=== PATIENT | female | born 1985 | race Caucasian/White ===

== ENCOUNTER 2022-05-03 15:04 | Emergency (ER) | payer OTHER, SELFPAY ==
[2022-05-03 15:16] VITALS: BP 120/80; PULSE 86; RESP 16; TEMP 36.5; O2SAT 100
--- NOTE | 2022-05-03 15:28 | ED.FEMALEGU ---
HPI - Female Genitourinary General Chief complaint: Urogenital-Female Stated complaint: Female Urogenital Time Seen by Provider: 05/03/22 15:28 Source: patient Mode of arrival: ambulatory Limitations: no limitations History of Present Illness HPI Narrative: 36-year-old female presents with complaint of vaginal discharge without odor, itching, vaginal burning, irritation for 3-4 days. Reports history of bacterial vaginitis is caused by changes in soaps. Reports that she recently used a different soap. Patient states she does not think that she has an STI but would like checked due to having a new partner. All systems reviewed and negative except as noted above. Related Data Home Medications Medication Instructions Recorded Confirmed clonazepam 0.5 mg tablet 0.5 mg PO BID 05/03/22 05/03/22 clonidine HCl 0.1 mg tablet 0.1 mg PO HS 05/03/22 05/03/22 estradiol 0.1 mg/24 hr weekly 1 patch transdermal WEEKLY 05/03/22 05/03/22 transdermal patch hydrocodone 7.5 mg-acetaminophen 1 tablet PO PRN PRN Pain 05/03/22 05/03/22 325 mg tablet levothyroxine 137 mcg tablet 137 mcg PO DAILY 05/03/22 05/03/22 (Synthroid) sertraline 100 mg tablet 100 mg PO BID 05/03/22 05/03/22 tramadol 50 mg tablet 50 mg PO TID PRN Pain 05/03/22 05/03/22 Allergies Allergy/AdvReac Type Severity Reaction Status Date / Time olanzapine AdvReac Intermediate Dizziness Verified 05/03/22 15:30 Review of Systems Review of Systems: CONSTITUTIONAL: Denies fever, chills, or sweats. EYES: Denies visual changes, redness, or discharge. ENT: Denies rhinorrhea, congestion, sore throat, or otalgia. CARDIOVASCULAR: Denies chest pain, palpitations, or edema. RESPIRATORY: Denies cough or dyspnea. GASTROINTESTINAL: Denies abdominal pain, nausea, vomiting, or diarrhea. GENITOURINARY: Denies dysuria or hematuria. Reports vaginal discharge, odor, itching. SKIN: Denies rash or itching. MUSCULOSKELETAL: Denies back pain, joint pain, or myalgia. NEUROLOGIC: Denies headache, numbness, or weakness. PSYCHIATRIC: Denies anxiety or depression. All other systems reviewed are negative, except as documented in HPI. PMFSH Comments At time of signature, agree with nursing past medical, surgical, social and family history. There is no relevant family history pertinent to the presenting complaint. Exam Narrative: GENERAL: This is a well-nourished, well-developed patient, in no apparent distress. HEAD: normocephalic, atraumatic. EYES: PERRL. Sclera clear/white. Vision is grossly intact. EARS: External ears normal NOSE: External nose normal NECK: Neck supple, non-tender without lymphadenopathy, masses or thyromegaly. CARDIOVASCULAR: Regular rate and rhythm without murmurs, gallops, or rubs. RESPIRATORY: Clear to auscultation. Breath sounds equal bilaterally. No wheezes, rales, or rhonchi. SKIN: warm, Dry, intact with no suspicious lesions or rash, good texture and turgor. NEURO: awake, alert, and oriented to person, place and time. There were no obvious focal neurologic abnormalities. EXTREMITIES: No joint tenderness, effusion, or edema noted. : External Female Exam: normal external appearance Speculum Exam - Vagina: abnormal vaginal discharge ( White, thick, cottage cheeselike) Course Course Level of Care: Express Care Visit Vital Signs Vital signs: Vital Signs Temperature 36.5 C 05/03/22 15:16 Pulse Rate 86 05/03/22 15:16 Respiratory Rate 16 05/03/22 15:16 Blood Pressure 120/80 05/03/22 15:16 Pulse Oximetry 100 05/03/22 15:16 Oxygen Delivery Room Air 05/03/22 15:16 Temperature 36.5 C 05/03/22 15:16 Pulse Rate 86 05/03/22 15:16 Respiratory Rate 16 05/03/22 15:16 Blood Pressure 120/80 05/03/22 15:16 Pulse Oximetry 100 05/03/22 15:16 Oxygen Delivery Room Air 05/03/22 15:16 reviewed MDM - Female Genitourinary MDM Narrative Medical decision making narrative: Patient is aware of diagnosis, understands and
== END 2022-05-03 15:52 | disposition home or self-care (01) ==
PROVIDERS: Emergency Provider Nurse Practitioner Family
DX: B37.31 Acute candidiasis of vulva and vagina (principal); E03.9 Hypothyroidism, unspecified; N80.9 Endometriosis, unspecified
CPT/HCPCS: 87070; 87491; 87591; 87661; 99204; G0463

== ENCOUNTER 2023-12-08 13:15 | Emergency (ER) | payer SELFPAY ==
[2023-12-08 13:26] VITALS: BP 133/92; PULSE 86; RESP 16; TEMP 36.6; O2SAT 100
[2023-12-08 13:28] VITALS: BP 133/92; PULSE 86; RESP 16; TEMP 36.6; O2SAT 100
--- NOTE | 2023-12-08 13:31 | ED.SKABFB ---
HPI - Skin/Abscess/Foreign Bdy General Chief complaint: Skin/Abscess/Foreign Body Stated complaint: fingernail redness Source: patient Mode of arrival: ambulatory Limitations: no limitations History of Present Illness HPI narrative: 38 y/o female presented for concern of redness around all cuticles for a few days. Denies pain, swelling or drainage. States she did use cleaning products a few days ago. Pt reports history of OCD, hypothyroid and a liver lesion. States she is concerned it could be related to liver problems. Related Data Home Medications Medication Instructions Recorded Confirmed clonazepam 0.5 mg tablet 0.5 mg PO BID 05/03/22 12/08/23 clonidine HCl 0.1 mg tablet 0.1 mg PO HS 05/03/22 05/03/22 estradiol 0.1 mg/24 hr weekly 1 patch transdermal WEEKLY 05/03/22 12/08/23 transdermal patch hydrocodone 7.5 mg-acetaminophen 1 tablet PO PRN PRN Pain 05/03/22 12/08/23 325 mg tablet levothyroxine 137 mcg tablet 137 mcg PO DAILY 05/03/22 12/08/23 (Synthroid) sertraline 100 mg tablet 100 mg PO BID 05/03/22 05/03/22 tramadol 50 mg tablet 50 mg PO TID PRN Pain 05/03/22 12/08/23 Allergies Allergy/AdvReac Type Severity Reaction Status Date / Time olanzapine AdvReac Intermediate Dizziness Verified 05/03/22 15:30 Review of Systems Review of Systems: CONSTITUTIONAL: Denies body aches, fever, chills, or sweats. ENT: Denies rhinorrhea, congestion CARDIOVASCULAR: Denies chest pain, palpitations, or edema. RESPIRATORY: Denies cough or dyspnea. GASTROINTESTINAL: Denies abdominal pain, nausea, vomiting, or diarrhea. SKIN: reports redness around cuticles of both hands MUSCULOSKELETAL: Denies back pain, joint pain, or myalgia. NEUROLOGIC: Denies headache, numbness, tingling, or weakness. [facility] Past Medical History Medical History (Updated 12/08/23 @ 13:54 by Senia Castle, ANNEL) Hypothyroid OCD (obsessive compulsive disorder) Comments At time of signature, I have reviewed and agree with nursing past medical, surgical, social and family history unless otherwise noted. Please see nursing chart for further information. There is no relevant family history pertinent to the presenting complaint Exam Narrative: GENERAL: Well-appearing EYES: conjunctivae clear, and EOMI. ENT: Mucous membranes moist. Oropharynx without edema, erythema or lesions. NECK: Supple. CHEST: Clear to auscultation. HEART: Regular rate and rhythm. SKIN: Warm, dry. Mild erythema surrounding cuticles of both hands, no swelling, tenderness, drainage, or fluctuance. Cuticles are intact. Nail beds appear normal. NEURO: Alert and oriented x3. PSYCH: appears anxious, repetitive/fixated Course Course Emergency Course: Patient is aware of diagnosis, understands and agrees to treatment plan. Anticipatory guidance given. Patient agrees to follow-up as directed and is aware of reasons to seek care at the emergency department. Portions of this record may have been created with voice recognition software Level of Care: Express Care Visit Vital Signs Vital signs: Vital Signs Temperature 97.9 F 12/08/23 13:26 Pulse Rate 86 12/08/23 13:26 Respiratory Rate 16 12/08/23 13:26 Blood Pressure 133/92 H 12/08/23 13:26 Pulse Oximetry 100 12/08/23 13:26 Oxygen Delivery Room Air 12/08/23 13:26 Temperature 97.9 F 12/08/23 13:28 Pulse Rate 86 12/08/23 13:28 Respiratory Rate 16 12/08/23 13:28 Blood Pressure 133/92 H 12/08/23 13:28 Pulse Oximetry 100 12/08/23 13:28 Oxygen Delivery Room Air 12/08/23 13:28 Reviewed MDM - Skin/Abscess/Foreign Bdy MDM Narrative Medical decision making narrative: Discussed physical exam findings, provided reassurance no signs of infection. Likely 2/2 chemical irritant. Pt continued to appear anxious, repetitive, showed a photo on her phone which appeared c/w current condition. Advised supportive measures and signs/symptoms to go to the ER. Pt is appropriate fo
== END 2023-12-08 13:55 | disposition home or self-care (01) ==
PROVIDERS: Emergency Provider Nurse Practitioner Family
DX: L98.8 Other specified disorders of the skin and subcutaneous tissue (principal); E03.9 Hypothyroidism, unspecified; F42.9 Obsessive-compulsive disorder, unspecified
CPT/HCPCS: 99211; G0463

== ENCOUNTER 2024-01-19 16:51 | Emergency (ER) | payer MEDICAID, SELFPAY ==
--- NOTE | ~2024-01-19 | XR_ITS ---
EXAMINATION: XR chest 2V Exam Date/Time: 01/19/2024 17:29 CDT HISTORY: wheeze, mild rhonchi Comparison: None. RESULT: Lines, tubes, and devices: None. Lungs and pleura: Ill-defined groundglass opacity in the right mid and lower lung, with mild scatter ed reticulonodular opacities and cuffing. Cardiomediastinal silhouette: Stable. Other: No acute osseous or upper abdominal finding. IMPRESSION: Subtle right mid and lower lung groundglass opacities may represent atelectasis or pneumonia, overlyi ng a background of respiratory bronchiolitis/airways disease. Reviewed, dictated and finalized at location K. IMPRESSION: Subtle right mid and lower lung groundglass opacities may represent atelectasis or pneumonia, overlying a background of respiratory bronchiolitis/airways dise ase.
[2024-01-19 17:02] VITALS: BP 141/90; PULSE 83; RESP 16; TEMP 36.4; O2SAT 100
--- NOTE | 2024-01-19 17:07 | ED.URI ---
HPI - URI/Sore Throat General Chief Complaint: Upper Respiratory Infection Stated Complaint: cold symptoms Time Seen by Provider: 01/19/24 17:07 Source: patient and RN notes reviewed Mode of arrival: ambulatory Limitations: no limitations History of Present Illness HPI Narrative: 38-year-old female presents with concern for feeling of water in her right ear, nasal congestion, runny nose and cough for 5 days. 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 MD elicited complaint: cough, rhinorrhea and nasal congestion Related Data Home Medications Medication Instructions Recorded Confirmed clonazepam 0.5 mg tablet 0.5 mg PO BID 05/03/22 01/19/24 estradiol 0.1 mg/24 hr weekly 1 patch transdermal WEEKLY 05/03/22 01/19/24 transdermal patch hydrocodone 7.5 mg-acetaminophen 1 tablet PO PRN PRN Pain 05/03/22 01/19/24 325 mg tablet levothyroxine 137 mcg tablet 137 mcg PO DAILY 05/03/22 01/19/24 (Synthroid) sertraline 100 mg tablet 100 mg PO BID 05/03/22 01/19/24 tramadol 50 mg tablet 50 mg PO TID PRN Pain 05/03/22 01/19/24 amlodipine 2.5 mg tablet 2.5 mg PO DAILY 01/19/24 01/19/24 Allergies Allergy/AdvReac Type Severity Reaction Status Date / Time olanzapine AdvReac Intermediate Dizziness Verified 01/19/24 17:11 Review of Systems Review of Systems: CONSTITUTIONAL: Reports malaise, fatigue. Denies chills, sweats, or fever. EYES: Denies visual changes, redness, or discharge. ENT: Reports rhinorrhea, congestion, otalgia CARDIOVASCULAR: Denies chest pain, palpitations, or edema. RESPIRATORY: Reports cough. Denies dyspnea. GASTROINTESTINAL: Denies abdominal pain, nausea, vomiting, diarrhea SKIN: Denies rash or itching. MUSCULOSKELETAL: Denies myalgia. NEUROLOGIC: Denies headache. All systems reviewed & are unremarkable except as noted in HPI and below PMFSH Past Medical History Medical History (Updated 01/19/24 @ 17:49 by Leidy Ardon NP) Hypothyroid OCD (obsessive compulsive disorder) Comments At time of signature, agree with nursing past medical, surgical, social and family history. There is no relevant family history pertinent to the presenting complaint Exam Narrative: GENERAL: Nontoxic-appearing, well-nourished, and in no acute distress. HEAD: Normocephalic EYES: PERRLA, conjunctivae clear ENT: Nares clear. Mucous membranes moist. TM pearly laird with sharp light reflex on the left, cons foreign body noted to the right ear, unable to visualize TM; no tragal tenderness. Oropharynx not erythematous without lesions. Tonsils not enlarged and without exudate, no drooling, no hoarseness, no trismus, uvula midline. NECK: Supple. No lymphadenopathy CHEST: Scattered wheezes and mild rhonchi, otherwise Clear to auscultation, breath sounds diminished in right lower lobe. No rales, or stridor. No respiratory distress, speaks in full sentences. HEART: Regular rate and rhythm. No murmur heard. SKIN: Warm, dry, no rash. NEURO: Alert and oriented x3. PSYCH: Normal mood and affect Course Course Emergency Course: Discussed x-ray findings with patient and advised follow-up with her primary care doctor for re-evaluation. Patient is aware of diagnosis, understands and agrees to treatment plan. Anticipatory guidance given. Patient agrees to follow-up as directed and is aware of reasons to seek care at the emergency department. Portions of this record may have been created with voice recognition software Level of Care: Express Care Visit Vital Signs Vital signs: Vital Signs Temperature 97.6 F 01/19/24 17:02 Pulse Rate 83 01/19/24 17:02 Respiratory Rate 16 01/19/24 17:02 Blood Pressure 141/90 H 01/19/24 17:02 Pulse Oximetry 100 01/19/24 17:02 Oxygen Delivery Room Air 01/19/24 17:02 Temperature 97.6 F 01/19/24 17:02 Pulse Rate 83 01/19/24 17:02 Respiratory Rate 16 01/19/24 17:02 Blood Pressure 141/90 H 01/19/24 17:02 Pulse Oximetry 100 01/19/24 17:02 Oxygen Delivery Room Air 01/19/24 17:02 Reviewed. Procedures FB Removal Ear Foreign Body #1: Foreign Body Removal Date: 01/19/24 Foreign Body Removal Time: 17:50 Location: ear canal (R) Foreign Body Suspected: other (cotton) TM intact pre-procedure: unable to visualize Foreign Body Removed: yes Foreign Body Removal Technique: forceps Tympanic Membrane Intact Post Procedure: Yes (Dull) Patient Tolerated Procedure: well Complications: none MDM - URI/Sore Throat MDM Narrative Medical decision making narrative: Differential diagnosis considered: Brandon virus, strep pharyngitis, allergic rhinitis, upper respiratory tract infection, sinusitis, rhinosinusitis, nasopharyngitis. viral pharyngitis, otitis media, otitis externa, pneumonia, bronchitis, viral cough syndrome, viral syndrome, and influenza. Exam findings show no acute concerns or changes; patient is non-toxic appearing and is in no distress. Patient is appropriate for outpatient treatment and follow-up. Lab Data Attestation: I reviewed the patient's lab results. Imaging Data Radiologist's impression: EXAMINATION: XR chest 2V Exam Date/Time: 01/19/2024 17:29 CDT HISTORY: wheeze, mild rhonchi Comparison: None. RESULT: Lines, tubes, and devices: None. Lungs and pleura: Ill-defined groundglass opacity in the right mid and lower lung, with mild scattered reticulonodular opacities and cuffing. Cardiomediastinal silhouette: Stable. Other: No acute osseous or upper abdominal finding. IMPRESSION: Subtle right mid and lower lung groundglass opacities may represent atelectasis or pneumonia, overlying a background of respiratory bronchiolitis/airways disease Critical Care Time Critical Care Time Critical Care Time: No Discharge Plan Discharge Clinical Impression: Lower respiratory infection Patient Disposition: Home, Self-Care Condition: Stable Instructions: Antibiotic Form, How to Use a Metered-Dose Inhaler (ED) Additional Instructions: 1) Please follow-up with your primary care doctor in the next 1-2 days. 2) If you have any worsening of symptoms or any other urgent concerns please go to the ER. 3) Please take medications as prescribed and continue taking your home medications as usual. Please use your inhaler as needed for coughing fits, shortness of breath, wheezing. You can use Afrin nasal spray for 2 days at a time for nasal congestion, fluid in your right ear, do not use it more than 2 consecutive days. Use Flonase nasal spray per package directions until your symptoms improve in your right ear 4) Please read and follow information included in discharge instructions. Prescriptions: New doxycycline monohydrate 100 mg tablet 100 mg PO BID 7 Days Qty: 14 0RF albuterol sulfate 90 mcg/actuation HFA aerosol inhaler 2 puff INHALATION QID PRN (Reason: shortness of breath or wheezing) Qty: 8.5 0RF No Action levothyroxine [Synthroid] 137 mcg tablet 137 mcg PO DAILY clonazepam 0.5 mg tablet 0.5 mg PO BID sertraline 100 mg tablet 100 mg PO BID tramadol 50 mg tablet 50 mg PO TID PRN (Reason: Pain) hydrocodone-acetaminophen 7.5-325 mg tablet 1 tablet PO PRN PRN (Reason: Pain) estradiol 0.1 mg/24 hr patch weekly 1 patch transdermal WEEKLY amlodipine 2.5 mg tablet 2.5 mg PO DAILY Follow-up/Referrals: Nicolle,Sofi Collins NP [Primary Care Provider] - Stand Alone Forms: Work/School Release IP Time of Disposition: 17:50
[2024-01-19 17:29] LABS: EDCOVIDSCREEN Negative (Negative)
[2024-01-19 18:18] LABS: EDINFLUASCREEN Negative (Negative); EDINFLUBSCREEN Negative (Negative)
== END 2024-01-19 18:15 | disposition home or self-care (01) ==
PROVIDERS: Emergency Provider Nurse Practitioner; PCP Nurse Practitioner Family
DX: J22 Unspecified acute lower respiratory infection (principal); T16.1XXA Foreign body in right ear, initial encounter; W44.8XXA Other foreign body entering into or through a natural orifice, initial encounter; Z20.822 Contact with and (suspected) exposure to COVID-19; E03.9 Hypothyroidism, unspecified; F42.9 Obsessive-compulsive disorder, unspecified
CPT/HCPCS: 69200; 71046; 87426; 87804; 99213; G0463

== ENCOUNTER 2024-01-27 09:02 | Emergency (ER) | payer OTHER, SELFPAY ==
[2024-01-27] VITALS (15 sets, daily range): BP systolic 115–140; BP diastolic 88–94; PULSE 83–106; RESP 12–21; TEMP 37.1; O2SAT 98–100
--- NOTE | ~2024-01-27 | CT_ITS ---
CTA chest PE protocol Ordering provider: Margot Mireles MD History: 38 years Female with . thomas, palp, pt request . Comparison: None. Technique: CT angiogram chest was performed following timed intravenous injection of contrast. Thin s lice axial images and reformatted coronal images were obtained. Three dimensional reformatted images of the chest were also obtained using a [employer] [place] workstation. . Automated exposure control and iterati ve reconstruction technique were employed. The dose-length product was 158.16 mGy-cm. 100 mL Omnipaque 350 was given IV. Findings: PULMONARY ARTERIES: No pulmonary embolus. VISUALIZED THORACIC INLET: Normal. MEDIASTINUM: Aorta/coronary arteries: The thoracic aorta is normal. Ascending aorta measures 3.1 cm. Aberrant righ t subclavian artery. Heart/other: The heart is not enlarged. Lymph nodes: No mediastinal or hilar adenopathy. LUNGS: No pulmonary nodules or masses. No infiltrates or effusions. No pneumothorax. VISUALIZED UPPER ABDOMEN: the visualized upper abdomen is normal. MUSCULOSKELETAL: Soft tissues: The superficial soft tissues are normal. Bones: Normal spine. IMPRESSION: 1. No pulmonary embolism. 2. No acute cardiopulmonary pathology. 3. Aberrant right subclavian artery. Reviewed, dictated and finalized at location A. PATIAL INFORMATION TECHNOLOGIST
--- NOTE | 2024-01-27 09:04 | ED_ITS ---
HPI - SOB/Dyspnea General Chief Complaint: Shortness of Breath/Dyspnea Stated Complaint: palpitations, SOB Time Seen by Provider: 01/27/24 09:03 Related Data Home Medications Medication Instructions Recorded Confirmed clonazepam 0.5 mg tablet 0.5 mg PO BID 05/03/22 01/19/24 estradiol 0.1 mg/24 hr weekly 1 patch transdermal WEEKLY 05/03/22 01/19/24 transdermal patch hydrocodone 7.5 mg-acetaminophen 1 tablet PO PRN PRN Pain 05/03/22 01/19/24 325 mg tablet levothyroxine 137 mcg tablet 137 mcg PO DAILY 05/03/22 01/19/24 (Synthroid) sertraline 100 mg tablet 100 mg PO BID 05/03/22 01/19/24 tramadol 50 mg tablet 50 mg PO TID PRN Pain 05/03/22 01/19/24 amlodipine 2.5 mg tablet 2.5 mg PO DAILY 01/19/24 01/19/24 Allergies Allergy/AdvReac Type Severity Reaction Status Date / Time olanzapine AdvReac Intermediate Dizziness Verified 01/27/24 09:03 [facility] Past Medical History Medical History (Updated 01/20/24 @ 00:02 by Background Jefferson) Hypothyroid OCD (obsessive compulsive disorder) Discharge Plan Discharge Prescriptions: No Action levothyroxine [Synthroid] 137 mcg tablet 137 mcg PO DAILY clonazepam 0.5 mg tablet 0.5 mg PO BID sertraline 100 mg tablet 100 mg PO BID tramadol 50 mg tablet 50 mg PO TID PRN (Reason: Pain) hydrocodone-acetaminophen 7.5-325 mg tablet 1 tablet PO PRN PRN (Reason: Pain) estradiol 0.1 mg/24 hr patch weekly 1 patch transdermal WEEKLY amlodipine 2.5 mg tablet 2.5 mg PO DAILY doxycycline monohydrate 100 mg tablet 100 mg PO BID 7 Days Qty: 14 0RF albuterol sulfate 90 mcg/actuation HFA aerosol inhaler 2 puff INHALATION QID PRN (Reason: shortness of breath or wheezing) Qty: 8.5 0RF Follow-up/Referrals: Nicolle,Sofi Collins NP [Primary Care Provider] -
--- NOTE | 2024-01-27 09:04 | ECG_ITS ---
Test Date: 2024-01-27 09:22:15 Measurements Intervals [place] Rate: 80 P: 77 CO: 160 QRS: 63 QRSD: 90 T: 4 QT: 348 QTc: 403 Interpretive Statements SINUS RHYTHM NONSPECIFIC ST-T WAVE ABNORMALITY- ANT/INF LEADS BORDERLINE ECG No previous ECG available for comparison Electronically Signed On 01-27-2024 09:39:01 [employer] by Jean-Pierre Moon D.O.
--- NOTE | 2024-01-27 09:14 | ED_ITS ---
HPI - SOB/Dyspnea General Chief Complaint: Shortness of Breath/Dyspnea Stated Complaint: palpitations, SOB Time Seen by Provider: 01/27/24 09:03 History of Present Illness HPI Narrative: Patient with history of anxiety, thyroid disease, presents here with concern that she may have a P due to palpitations and shortness of breath ongoing for the last few weeks. Had workup at another hospital that was negative including a negative D-dimer and chest x-ray however she is insistent on getting a CT of her chest to rule out PE. States this is not anxiety Related Data Home Medications Medication Instructions Recorded Confirmed clonazepam 0.5 mg tablet 0.5 mg PO BID 05/03/22 01/19/24 estradiol 0.1 mg/24 hr weekly 1 patch transdermal WEEKLY 05/03/22 01/19/24 transdermal patch hydrocodone 7.5 mg-acetaminophen 1 tablet PO PRN PRN Pain 05/03/22 01/19/24 325 mg tablet levothyroxine 137 mcg tablet 137 mcg PO DAILY 05/03/22 01/19/24 (Synthroid) sertraline 100 mg tablet 100 mg PO BID 05/03/22 01/19/24 tramadol 50 mg tablet 50 mg PO TID PRN Pain 05/03/22 01/19/24 amlodipine 2.5 mg tablet 2.5 mg PO DAILY 01/19/24 01/19/24 Allergies Allergy/AdvReac Type Severity Reaction Status Date / Time azithromycin [From Zithromax] Allergy Unknown Verified 01/27/24 09:12 olanzapine AdvReac Intermediate Dizziness Verified 01/27/24 09:03 Review of Systems Review of Systems: All systems reviewed & are unremarkable except as noted in HPI and below PMFSH Past Medical History Medical History (Updated 01/27/24 @ 11:18 by Margot Mireles MD) Hypothyroid OCD (obsessive compulsive disorder) Exam Narrative: EXAMINATION OF ORGAN SYSTEMS/BODY AREAS: Constitutional: Vital signs per nursing GENERAL: extremely anxious and tearful HEAD: Normal with no signs of head trauma. EYES: EOMI, conjunctiva normal ENT: Hearing grossly intact LUNGS: clear lungs, hyperventilating HEART: occasionally tachycardic ABD: [Soft], [nontender to palpation] EXT: Normal range of motion SKIN: [No rashes or lesions.] NEURO: [Alert and oriented x 3. No gross focal sensory or strength deficits.] PSYCH: anxious affect Course Vital Signs Vital signs: Vital Signs Temperature 98.7 F 01/27/24 09:07 Pulse Rate 106 H 01/27/24 09:07 Respiratory Rate 16 01/27/24 09:07 Blood Pressure 140/94 H 01/27/24 09:07 Pulse Oximetry 100 01/27/24 09:07 Oxygen Delivery Room Air 01/27/24 09:07 Temperature 98.7 F 01/27/24 09:07 Pulse Rate 94 01/27/24 11:27 Respiratory Rate 18 01/27/24 11:27 Blood Pressure 129/92 H 01/27/24 11:27 Pulse Oximetry 99 01/27/24 11:27 Oxygen Delivery Room Air 01/27/24 09:28 MDM - SOB/Dyspnea MDM Narrative Medical decision making narrative: Patient with history of anxiety/panic attacks presenting here with shortness of breath, chest tightness. On exam patient is [tachycardic and hyperventilating and is quite anxious]. I will obtain EKG and chest xray to rule out arrhythmia/ischemia, pneumothorax, or other cause of chest discomfort/shortness of breath. Patient is insistent on getting a CTA so I did order this. CTA unremarkable. EKG - 12-Lead: Performed at 921. Interpreted by me. [Sinus rhythm]. Rate 80. [Normal] axis. [place]-interval [normal]. QRS duration [normal]. QTc [normal]. some T-wave inversions in inferior leads. No ST elevations or depressions. On reevaluation patient is feeling better, resting comfortably, vital signs now stable. Reassured about her negative findings. I do feel patient is stable for discharge home at this time with followup to their doctor, and return here if symptoms return or worsen. Agreeable to outpatient management. Lab Data 01/27/24 09:24 01/27/24 09:24 Labs: Lab Results 01/27/24 Range/Units : WBC 6.7 (4.5-10.0) K/mm3 RBC 4.60 (4.2-5.4) M/mm3 Hgb 14.4 (12.0-15.0) g/dL Hct 41.1 (37.0-47.0) % MCV 89.3 (80-100) fl MCH 31.3 (26-34) pg MCHC 35.0 (32-36) g/dl RDW 12.5 (11.5-14.5) % Plt Count 229 (150-375) k/mm3 MPV 9.8 (7.4-10.4) fl Immature Gran % (Auto) 0.9 H (0-0.5) % Neut % (Auto) 67.4 (45.5-73.1) % Lymph % (Auto) 25.3 (18.3-44.2) % [place] % (Auto) 5.2 (2.6-8.5) % Eos % (Auto) 0.6 (0-4.4) % Baso % (Auto) 0.6 (0.2-1.2) % Lymph # (Auto) 1.70 (0.9-3.2) K/mm3 [place] # (Auto) 0.4 (0.1-0.6) K/mm3 Eos # (Auto) 0.0 (0-0.3) K/mm3 Baso # (Auto) 0.0 (0.0-0.1) K/mm3 Abs Immat Gran (auto) 0.06 H (0.00-0.031) K/mm3 Absolute Neuts (auto) 4.5 (1.3-6.7) K/mm3 Absolute Nucleated RBC 0.000 (0.0-0.012) K/mm3 Nucleated RBC % 0.0 (0.0-0.2) % Sodium 138 (137-145) mmol/L Potassium 3.7 (3.4-5.0) mmol/L Chloride 101 (98-107) mmol/L Carbon Dioxide 28 (22-30) mmol/L Anion Gap 9 (4-12) mmol/L BUN 8 (7-17) mg/dL Creatinine 0.50 L (0.7-1.0) mg/dL Estim Creat Clear Calc 97 ml/min Estimated GFR > 60 (59 - ) Glucose 115 H (65-110) mg/dL Calcium 9.4 (8.4-10.2) mg/dL Total Bilirubin 0.6 (0.2-1.3) mg/dL AST 21 (14-36) U/L ALT 23 (6-35) U/L Alkaline Phosphatase 73 (38-126) U/L Total Protein 8.0 (6.3-8.2) g/dL Albumin 4.9 (3.5-5.1) g/dL TSH (Reflex) 13.800 H (0.465-4.68) uIU/mL Free T4 1.27 (0.78-2.19) ng/dL Total T3 0.98 (0.97-1.69) NG/ML Discharge Plan Discharge Clinical Impression: Shortness of breath Patient Disposition: Home, Self-Care Condition: Stable Instructions: Shortness of Breath (ED) Additional Instructions: Please follow up with your doctor; you can always return for any further issues. Prescriptions: No Action levothyroxine [Synthroid] 137 mcg tablet 137 mcg PO DAILY clonazepam 0.5 mg tablet 0.5 mg PO BID sertraline 100 mg tablet 100 mg PO BID tramadol 50 mg tablet 50 mg PO TID PRN (Reason: Pain) hydrocodone-acetaminophen 7.5-325 mg tablet 1 tablet PO PRN PRN (Reason: Pain) estradiol 0.1 mg/24 hr patch weekly 1 patch transdermal WEEKLY amlodipine 2.5 mg tablet 2.5 mg PO DAILY doxycycline monohydrate 100 mg tablet 100 mg PO BID 7 Days Qty: 14 0RF albuterol sulfate 90 mcg/actuation HFA aerosol inhaler 2 puff INHALATION QID PRN (Reason: shortness of breath or wheezing) Qty: 8.5 0RF Follow-up/Referrals: Nicolle,Sofi Collins NP [Primary Care Provider] -
[2024-01-27 09:30] LABS: Basophils Percent Auto 0.6 % (0.2-1.2); Eosinophils Percent Auto 0.6 % (0-4.4); Hematocrit 41.1 % (37.0-47.0); Hemoglobin 14.4 g/dL (12.0-15.0); Immature Granulocyte Absolute 0.06 K/mm3 (0.00-0.031); Immature Granulocyte Percent A 0.9 % (0-0.5); Lymphocytes Percent Auto 25.3 % (18.3-44.2); Mean Corpuscular Hemoglobin 31.3 pg (26-34); Mean Corpuscular Volume 89.3 fl (80-100); Mean Platelet Volume 9.8 fl (7.4-10.4); Monocytes Absolute Auto 0.4 K/mm3 (0.1-0.6); Monocytes Percent Auto 5.2 % (2.6-8.5); Neutrophils Absolute Auto 4.5 K/mm3 (1.3-6.7); Neutrophils Percent Auto 67.4 % (45.5-73.1); Platelet Count Result 229 k/mm3 (150-375); Red Cell Distribution Width 12.5 % (11.5-14.5); White Blood Count 6.7 K/mm3 (4.5-10.0)
[2024-01-27 10:07] LABS: Alanine Aminotransferase 23 U/L (6-35); Albumin Level 4.9 g/dL (3.5-5.1); Alkaline Phosphatase 73 U/L (38-126); Anion Gap 9 mmol/L (4-12); Aspartate Amino Transferase 21 U/L (14-36); Bilirubin,Total 0.6 mg/dL (0.2-1.3); Blood Urea Nitrogen 8 mg/dL (7-17); Calcium 9.4 mg/dL (8.4-10.2); Carbon Dioxide 28 mmol/L (22-30); Chloride 101 mmol/L (98-107); Estimated CRCL calculation 97 ml/min; Estimated Glomerular Filt Rate > 60; Glucose 115 mg/dL (65-110); Potassium 3.7 mmol/L (3.4-5.0); Sodium 138 mmol/L (137-145)
[2024-01-27 11:23] LABS: Free T4 Free Thyroxine Reflex 1.27 ng/dL (0.78-2.19)
[2024-01-27 12:14] LABS: Total Triiodothyronine (T3) 0.98 NG/ML (0.97-1.69)
== END 2024-01-27 11:28 | disposition home or self-care (01) ==
PROVIDERS: Emergency Provider Emergency Medicine; PCP Nurse Practitioner Family
DX: R06.02 Shortness of breath (principal); E03.9 Hypothyroidism, unspecified
CPT/HCPCS: 36415; 71275; 80053; 84439; 84443; 84480; 85025; 93005; 99284; Q9967

== ENCOUNTER 2024-01-31 14:45 | Emergency (ER) | payer OTHER, SELFPAY ==
--- NOTE | ~2024-01-31 | XR_ITS ---
EXAMINATION: XR chest 2V Exam Date/Time: 01/31/2024 15:11 PRAWN TRAWLER HAND HISTORY: SOB and Chest pain Comparison: 01/19/2024. RESULT: Lines, tubes, and devices: None. Lungs and pleura: Clear. Cardiomediastinal silhouette: Stable. Other: No acute osseous or upper abdominal finding. IMPRESSION: No acute cardiopulmonary process. Reviewed, dictated and finalized at location K. N TRAWLER HAND
[2024-01-31 14:54] VITALS: BP 150/93; PULSE 103; RESP 18; TEMP 36.7; O2SAT 100
--- NOTE | 2024-01-31 14:54 | ED.GENADULT ---
HPI - General Adult General Chief complaint: Shortness of Breath/Dyspnea Stated complaint: light headed / dizzy Time Seen by Provider: 01/31/24 14:55 Source: patient Mode of arrival: ambulatory Limitations: no limitations History of Present Illness HPI narrative: 38-year-old female patient presents to the [facility] with complaints of midsternal chest pain and shortness of breath. Patient was diagnosed with lower lobe pneumonia on 01/18 was provided Levaquin and steroids. Patient states she felt like the symptoms never really fully went away. Patient was seen at [place] [facility] about 4 days ago and had a workup for a PE which came back negative. Blood work was all unremarkable patient had been seen at another ER prior to that was also another unremarkable exam. Patient states she is short of breath at home. Does have history of anxiety which she is on the medication for that she takes as needed. Patient states she has seen a freelance operator which does not feel that her symptoms are due to any heart issue. Patient denies any fevers, body aches or chills. Related Data Home Medications Medication Instructions Recorded Confirmed clonazepam 0.5 mg tablet 0.5 mg PO BID 05/03/22 01/31/24 estradiol 0.1 mg/24 hr weekly 1 patch transdermal WEEKLY 05/03/22 01/31/24 transdermal patch hydrocodone 7.5 mg-acetaminophen 1 tablet PO PRN PRN Pain 05/03/22 01/31/24 325 mg tablet levothyroxine 137 mcg tablet 137 mcg PO DAILY 05/03/22 01/31/24 (Synthroid) sertraline 100 mg tablet 100 mg PO BID 05/03/22 01/31/24 tramadol 50 mg tablet 50 mg PO TID PRN Pain 05/03/22 01/31/24 Allergies Allergy/AdvReac Type Severity Reaction Status Date / Time azithromycin [From Zithromax] Allergy Unknown Verified 01/31/24 14:57 olanzapine AdvReac Intermediate Dizziness Verified 01/31/24 14:57 Review of Systems Review of Systems: CONSTITUTIONAL: Denies fever, chills, or sweats. EYES: Denies visual changes, redness, or discharge. ENT: Denies rhinorrhea, congestion, sore throat, or otalgia. CARDIOVASCULAR: positive chest pain, palpitations, denies edema. RESPIRATORY: Positive cough and dyspnea. GASTROINTESTINAL: Denies abdominal pain, nausea, vomiting, or diarrhea. GENITOURINARY: Denies dysuria or hematuria. SKIN: Denies rash or itching. MUSCULOSKELETAL: Denies back pain, joint pain, or myalgia. NEUROLOGIC: Denies headache, numbness, or weakness. PSYCHIATRIC: Denies anxiety or depression. [facility] Past Medical History Medical History (Updated 01/31/24 @ 16:14 by MARTHA Finley) Anxiety Hypothyroid OCD (obsessive compulsive disorder) Comments At the time of my signature I agree with nursing past medical history, surgical, social, and family history. There is no relevant family history pertinent to the presenting complaint. Exam Narrative: GENERAL: Well-appearing, well-nourished, and in no acute distress. HEAD: Normocephalic, atraumatic. EYES: PERRLA and EOMI. ENT: Nares clear, no rhinorrhea or epistaxis. Mucous membranes moist. posterior pharynx with no erythema, tonsillar enlargement, exudates or lesions present. NECK: Supple. No lymphadenopathy CHEST: Clear to auscultation. No respiratory distress. Patient able talk include complete sentences. HEART: Tachy rate and regular rhythm. No murmur heard. Normal peripheral pulses. ABDOMEN: Soft, nontender, nondistended, normal active bowel sounds. EXTREMITIES: Normal range of motion. No edema. SKIN: Warm, dry, no rash. NEURO: No focal deficits. Alert and oriented x3. Course Course Level of Care: Express Care Visit Reevaluation(s) Reevaluation #1: re-evaluated patient after EKG has resulted. Notified patient that there is some changes in her EKG as compared to her EKG in the ER a couple of days ago. Discussed with patient that we are not equipped to do cardiac workups in the Urgent Care in highly recommend that she go to the ER for further evaluation and treatment expect sleeve she continues to have chest pain and shortness of breath. Patient states she has had abnormal EKGs before the past does not wish to the AR at this time will call her freelance operator. Discussed with patient again that I am only seeing 1 prior EKG in her chart at this time however it does state that she could have some possible lateral and inferior ski Alcira which is concerning for heart damage and again highly recommend that she go to the ER for further evaluation. Patient states she is aware and does not wish to go the ER at this time but will think about it. Discussed with her that I will have her sign an AMA form stating that she is refusing to go to the ER despite on the EKG results as well as my urgency that she go get another workup. Date: 01/31/24 Time: 15:33 Vital Signs Vital signs: Vital Signs Temperature 36.7 C 01/31/24 14:54 Pulse Rate 103 H 01/31/24 14:54 Respiratory Rate 18 01/31/24 14:54 Blood Pressure 150/93 H 01/31/24 14:54 Pulse Oximetry 100 01/31/24 14:54 Oxygen Delivery Room Air 01/31/24 14:54 Temperature 36.7 C 01/31/24 14:54 Pulse Rate 103 H 01/31/24 14:54 Respiratory Rate 18 01/31/24 14:54 Blood Pressure 150/93 H 01/31/24 14:54 Pulse Oximetry 100 01/31/24 14:54 Oxygen Delivery Room Air 01/31/24 14:54 Vital signs reviewed. The patient has been informed that they may have pre-hypertension or Hypertension based on a BP reading in the department. I recommend that the patient call the primary care provider listed on their discharge instructions or a physician of their choice this week to arrange follow up for further evaluation of possible pre-hypertension or Hypertension Medical Decision Making MDM Narrative Medical decision making narrative: discussed with patient that we can do an EKG and a chest x-ray on her today however that is about the extent of what we have available in the [facility]. Discussed with patient if she feels like she needs more workup we would need to send his to the emergency department. I will reassess her once the x-ray admitted EKG returns. Differential Diagnosis Differential Diagnosis: Differential diagnosis: STEMI/ACS, AAA, PE, spontaneous pneumothorax, cardiac tamponade, esophageal rupture, pneumonia, GERD, muscle-skeletal pain or trauma, endocarditis, cocaine-related ischemia, pericarditis, URI, bronchitis. Vital Signs Vital Signs: Vital Signs Temperature 36.7 C 01/31/24 14:54 Pulse Rate 103 H 01/31/24 14:54 Respiratory Rate 18 01/31/24 14:54 Blood Pressure 150/93 H 01/31/24 14:54 Pulse Oximetry 100 01/31/24 14:54 Oxygen Delivery Room Air 01/31/24 14:54 Temperature 36.7 C 01/31/24 14:54 Pulse Rate 103 H 01/31/24 14:54 Respiratory Rate 18 01/31/24 14:54 Blood Pressure 150/93 H 01/31/24 14:54 Pulse Oximetry 100 01/31/24 14:54 Oxygen Delivery Room Air 01/31/24 14:54 ECG Data EKG #1: Interpretation: Sinus rhythm with sinus arrhythmia. Possible left atrial enlargement. ST deviation and moderate T-wave abnormality, consider lateral ischemia, -0 0.1 mV T-wave in I/aVL/V5/V6. ST deviation and moderate T-wave abnormality, consider inferior ischemia, -0.1 in the T-wave in II/aVF. abnormal ECG. Unconfirmed report. Vent rate: 85 AK interval: 167 QRS duration: 89 QT/ QTC: 328/371 P- R- T axes: 79, 67, -45 Critical Care Time Critical Care Time Critical Care Time: No Discharge Plan Discharge Clinical Impression: Shortness of breath Chest pain Qualifiers: Chest pain type: unspecified Qualified Code(s): R07.9 - Chest pain, unspecified Patient Disposition: Left Against Medical Advice Condition: Stable Instructions: Chest Pain (ED) Additional Instructions: Please go to the ER if chest pain worsens, lightheadedness, dizziness, shortness of breath or any other concerning symptoms please go directly to the ER for further evaluation treatment. Prescriptions: No Action levothyroxine [Synthroid] 137 mcg tablet 137 mcg PO DAILY clonazepam 0.5 mg tablet 0.5 mg PO BID sertraline 100 mg tablet 100 mg PO BID tramadol 50 mg tablet 50 mg PO TID PRN (Reason: Pain) hydrocodone-acetaminophen 7.5-325 mg tablet 1 tablet PO PRN PRN (Reason: Pain) estradiol 0.1 mg/24 hr patch weekly 1 patch transdermal WEEKLY albuterol sulfate 90 mcg/actuation HFA aerosol inhaler 2 puff INHALATION QID PRN (Reason: shortness of breath or wheezing) Qty: 8.5 0RF Follow-up/Referrals: PHYSICIAN,MONUMENT STONECUTTER [Primary Care Provider] - Time of Disposition: 16:14
--- NOTE | 2024-01-31 14:59 | ECG_ITS ---
Test Date: 2024-01-31 15:16:38 Measurements Intervals [place] Rate: 85 P: 79 MD: 167 QRS: 67 QRSD: 89 T: -45 QT: 328 QTc: 392 Interpretive Statements SINUS RHYTHM WITH SINUS ARRHYTHMIA POSSIBLE LEFT ATRIAL ENLARGEMENT ST-T WAVE ABNORMALITY IN INFERIOR LEADS- CONSIDER ISCHEMIA BASELINE ARTIFACT- I, II, III, AVR, AVL, AVF, V1-V2, V4-V6 ABNORMAL ECG Compared to ECG 01/27/2024 09:22:15 POSSIBLE ISCHEMIA NOW PRESENT Electronically Signed On 01-31-2024 18:15:47 LINING CLOSER by Jean-Pierre Moon D.O.
== END 2024-01-31 16:16 | disposition left against medical advice (07) ==
PROVIDERS: Emergency Provider Nurse Practitioner Family
DX: R06.02 Shortness of breath (principal); R07.9 Chest pain, unspecified; E03.9 Hypothyroidism, unspecified; F41.9 Anxiety disorder, unspecified; F42.9 Obsessive-compulsive disorder, unspecified; R94.31 Abnormal electrocardiogram [ECG] [EKG]
CPT/HCPCS: 71046; 93005; 99213; G0463

== ENCOUNTER 2024-02-01 04:01 | Emergency (ER) | payer OTHER, SELFPAY ==
[2024-02-01] VITALS (7 sets, daily range): BP systolic 116–137; BP diastolic 85–103; PULSE 69–95; RESP 14–18; TEMP 36.6–36.8; O2SAT 97–100
--- NOTE | ~2024-02-01 | XR_ITS ---
Portable chest x-ray Comparison: 01/31/2024 Clinical History: Chest pain Findings: Lungs are clear, without focal consolidation or pleural effusion. Cardiomediastinal silho uette is stable. Bones and soft tissues are unremarkable. Impression: Normal chest. Reviewed, dictated and finalized at [facility]. CIPAL SERVICES MANAGER Impression: Normal chest.
--- NOTE | 2024-02-01 04:03 | ECG_ITS ---
Test Date: 2024-02-01 04:09:54 Measurements Intervals [place] Rate: 82 P: 81 ME: 170 QRS: 69 QRSD: 97 T: -12 QT: 347 QTc: 407 Interpretive Statements SINUS RHYTHM ST-T WAVE ABNORMALITY IN INFERIOR LEADS- CONSIDER ISCHEMIA BASELINE ARTIFACT- I, II, III, AVR, AVL, AVF, V4-V6 ABNORMAL ECG Compared to ECG 01/31/2024 15:16:38 NO SIGNIFICANT CHANGE Electronically Signed On 02-01-2024 06:49:36 APPLICATIONS SPECIALIST by Jean-Pierre Moon D.O.
[2024-02-01 04:21] LABS: Basophils Percent Auto 0.5 % (0.2-1.2); Eosinophils Absolute Auto 0.2 K/mm3 (0-0.3); Eosinophils Percent Auto 2.2 % (0-4.4); Hematocrit 39.4 % (37.0-47.0); Hemoglobin 13.6 g/dL (12.0-15.0); Immature Granulocyte Absolute 0.03 K/mm3 (0.00-0.031); Immature Granulocyte Percent A 0.4 % (0-0.5); Lymphocytes Absolute Auto 1.51 K/mm3 (0.9-3.2); Lymphocytes Percent Auto 20.6 % (18.3-44.2); Mean Corpuscular HGB Conc 34.5 g/dl (32-36); Mean Corpuscular Hemoglobin 31.6 pg (26-34); Mean Corpuscular Volume 91.4 fl (80-100); Mean Platelet Volume 9.8 fl (7.4-10.4); Monocytes Absolute Auto 0.5 K/mm3 (0.1-0.6); Monocytes Percent Auto 6.5 % (2.6-8.5); Neutrophils Absolute Auto 5.1 K/mm3 (1.3-6.7); Neutrophils Percent Auto 69.8 % (45.5-73.1); Platelet Count Result 217 k/mm3 (150-375); Red Blood Count 4.31 M/mm3 (4.2-5.4); Red Cell Distribution Width 12.4 % (11.5-14.5); White Blood Count 7.3 K/mm3 (4.5-10.0)
--- NOTE | 2024-02-01 04:26 | ED.ARRPALP ---
HPI - Arrhythmia/Palpitations General Chief Complaint: Chest Pain Stated Complaint: chest pain/palpitations Time Seen by Provider: 02/01/24 04:15 Source: patient Mode of arrival: ambulatory Limitations: no limitations History of Present Illness HPI narrative: Patient presents with complaint of palpitations. She notes that every morning she wakes up out of her sleep with a racing on heart feet. She is hyper aware of this sensation. She states that it is not owen chest pain initially although it develops into chest pain. These issues are chronic and have been worked up multiple times. Patient presented to [place] emergency department at [facility] for the same recently. She also has a bioprocess development engineer who she follows with, Dr. Dorsey at [facility], starting in December. She previously wore an event monitor but not since establishing with Dr. Danielle. She has never had cardiac catheterization though did undergo stress test in 2020 which was normal. She describes her chest pain is a tightness. She had an echo last year and states that her ejection fraction was between 55 and 59 present. No recent travel. Patient has been taking her Synthroid for her thyroid issues but she states that this is also an issue and because of problems with her primary care physician she is trying to establish with someone new. Patient notes that she gets short of breath during the day. No leg swelling either unilaterally or bilaterally. She states she occasionally has a cough but denies any hemoptysis. No recent surgery or trauma. No prior DVT or PE. She is on estradiol. She had pneumonia a few weeks ago but states that she had follow-up for this and it was deemed that this was cleared. She has been on Levaquin for that. Denies any drugs or alcohol. She is on amlodipine and bisoprolol for hypertension though she states that she had not been taking recently due to a side effect of her feeling exhausted. Father had a myocardial infarction the age of 60. She does not have diabetes. She occasionally smokes. No Prior myocardial infarction, TIA, or CVA. She has history of anxiety but states this feels different. Related Data Home Medications Medication Instructions Recorded Confirmed clonazepam 0.5 mg tablet 0.5 mg PO BID 05/03/22 01/31/24 estradiol 0.1 mg/24 hr weekly 1 patch transdermal WEEKLY 05/03/22 01/31/24 transdermal patch hydrocodone 7.5 mg-acetaminophen 1 tablet PO PRN PRN Pain 05/03/22 01/31/24 325 mg tablet levothyroxine 137 mcg tablet 137 mcg PO DAILY 05/03/22 01/31/24 (Synthroid) sertraline 100 mg tablet 100 mg PO BID 05/03/22 01/31/24 tramadol 50 mg tablet 50 mg PO TID PRN Pain 05/03/22 01/31/24 Allergies Allergy/AdvReac Type Severity Reaction Status Date / Time azithromycin [From Zithromax] Allergy Unknown Verified 01/31/24 14:57 olanzapine AdvReac Intermediate Dizziness Verified 01/31/24 14:57 [facility] Past Medical History Medical History (Updated 02/01/24 @ 07:46 by Nancy Reagan MD) Anxiety Hyperlipemia Hypertension Hypothyroid Normal cardiac stress test 2020 OCD (obsessive compulsive disorder) Family History Family History Father Acute myocardial infarction, Onset Age: 60 Social History Social History (Updated 02/01/24 @ 07:47 by Nancy Reagan MD) Smoking status: Current some day smoker Additional smoking assessment comments: occasional Exam Narrative: GENERAL: Well-appearing, well-nourished, and in no acute distress. HEAD: Normocephalic, atraumatic. EYES: Non injected, non icteric ENT: Nares clear, no rhinorrhea or epistaxis. NECK: Supple. CHEST: Speaking in full sentences. No respiratory distress. Lungs clear to auscultation bilaterally without appreciable wheezes, consolidation, crackles. HEART: Regular rate and rhythm. Radial pulse patch is tracing on bedside monitoring and evaluation advisor without evidence of ectopic beats during physical exam. ABDOMEN: Soft, nondistended. EXTREMITIES: Normal range of motion. No bilateral lower extremity edema. SKIN: Warm, dry, no rash. NEURO: No focal deficits. Alert and oriented x3. PSYCH: Normal mood and affect. Course Vital Signs Vital signs: Vital Signs Pulse Rate 95 02/01/24 04:05 Respiratory Rate 16 02/01/24 04:05 Blood Pressure 137/103 H 02/01/24 04:05 Pulse Oximetry 100 02/01/24 04:05 Temperature 97.8 F 02/01/24 08:11 Pulse Rate 73 02/01/24 08:11 Respiratory Rate 16 02/01/24 08:11 Blood Pressure 131/86 02/01/24 08:11 Pulse Oximetry 99 02/01/24 08:11 Oxygen Delivery Room Air 02/01/24 04:07 MDM - Arrhythmia/Palpitations MDM Narrative Medical decision making narrative: Patient presents with palpitations which then causes chest pain. This has been a chronic issue and patient does acknowledge that she has presented to multiple emergency departments for this and been worked up previously. She has a bioprocess development engineer through [facility]. In the emergency department she is afebrile with vital signs notable for hypertension. Of note she is not tachycardic or hypoxic. PERC Rule Age greater than or equal to 50: 0 HR greater than or equal to 100:0 O2 sat room air <95%:0 Unilateral leg swellin Hemoptysis:0 Recent surgery or trauma less than 4 wks ago requiring tx with general anesthesia:0 Prior PE or DVT:0 Hormone use (OCP, HRT or estrogenic hormone use in M/F patients): 1 Wells' Score for PE: Clinical S/S DVT (No 0, Yes +3): 0 PE #1 Dx OR equally likely (No 0, Yes +3): 0 HR >100 (No 0, Yes +1.5): 0 Immobiliazation at least 3 d OR surgery prev 4 wks (No 0, Yes +1.5):0 Previous Dx DVT/PE (No 0, Yes +1.5):0 Hemoptysis (No 0, Yes +1):0 Malignancy w/ Tx within 6 mos or palliative (No 0, Yes +1):0 Total 0 D-dimer obtained but negative so will not pursue further imaging. HEART SCORE History 2 highly suspicious 1 moderately suspicious 0 slightly suspicious History score [address] depression/elevation not due to LBBB, LVH, or digoxin [address] depression but LBBB, LVH, nonspecific repolarization changes 0 normal ECG score 1 Age 2 >/= 65 1 45-64 0 <45 Age score 0 Risk factors (HTN, hypercholesterolemia, DM, obesity with BMI >30, current smoker or cessation </=3mo), positive fam hx with parent or sibling with CVD before age 65, atherosclerotic disease (prior ME, PCI/CABG, CVA/TIA, or peripheral arterial disease) 2 >/= 3 risk factors or history of atherosclerotic dz 1 - 1-2 risk factors 0 no known risk factors Risk factor score: 2 (HTN, HLD, obesity, smoking) Initial Troponin 2 >3 times normal limit 1 1-3 times normal limit 0 less than or equal to normal limit Troponin score 0 Total HEART Score 3. Repeat troponin normal. No significant ectopy or aberrant beats or abnormal rhythms/arrhythmia has been captured on EKGs or during cardiac monitoring. Given low heart score, outpatient workup is the recommendation. Patient is requesting walking pulse ox Because she feels short of breath. This is performed by nurse but patient maintains oxygen saturation 98 present throughout. Differential Diagnosis Differential diagnosis: Likely palpitations, anxiety, sinus tachycardia, artial fibrillation, artial flutter, ventricular premature beats, supraventricular tachycardia, ventricular tachycardia and WPW Lab Data Attestation: I reviewed the patient's lab results. 02/01/24 04:14 02/01/24 04:14 Labs: Lab Results 02/01/24 02/01/24 Range/Units 04:14 07:01 WBC 7.3 (4.5-10.0) K/mm3 RBC 4.31 (4.2-5.4) M/mm3 Hgb 13.6 (12.0-15.0) g/dL Hct 39.4 (37.0-47.0) % MCV 91.4 (80-100) fl MCH 31.6 (26-34) pg MCHC 34.5 (32-36) g/dl RDW 12.4 (11.5-14.5) % Plt Count 217 (150-375) k/mm3 MPV 9.8 (7.4-10.4) fl Immature Gran % (Auto) 0.4 (0-0.5) % Neut % (Auto) 69.8 (45.5-73.1) % Lymph % (Auto) 20.6 (18.3-44.2) % [place] % (Auto) 6.5 (2.6-8.5) % Eos % (Auto) 2.2 (0-4.4) % Baso % (Auto) 0.5 (0.2-1.2) % Lymph # (Auto) 1.51 (0.9-3.2) K/mm3 [place] # (Auto) 0.5 (0.1-0.6) K/mm3 Eos # (Auto) 0.2 (0-0.3) K/mm3 Baso # (Auto) 0.0 (0.0-0.1) K/mm3 Abs Immat Gran (auto) 0.03 (0.00-0.031) K/mm3 Absolute Neuts (auto) 5.1 (1.3-6.7) K/mm3 Absolute Nucleated RBC 0.000 (0.0-0.012) K/mm3 Nucleated RBC % 0.0 (0.0-0.2) % PT 13.6 (11.1-14.7) Seconds INR 1.0 APTT 29.1 (22.3-36.8) Seconds D-Dimer < 0.27 (<0.48) ug/mL Sodium 137 (137-145) mmol/L Potassium 4.2 (3.4-5.0) mmol/L Chloride 104 (98-107) mmol/L Carbon Dioxide 28 (22-30) mmol/L Anion Gap 5 (4-12) mmol/L BUN 11 (7-17) mg/dL Creatinine 0.50 L (0.7-1.0) mg/dL Estim Creat Clear Calc 130 ml/min Estimated GFR > 60 (59 - ) Glucose 123 H (65-110) mg/dL Calcium 9.2 (8.4-10.2) mg/dL Total Bilirubin 0.6 (0.2-1.3) mg/dL AST 30 (14-36) U/L ALT 28 (6-35) U/L Alkaline Phosphatase 72 (38-126) U/L Troponin I < 0.012 < 0.012 (0.000-0.034) ng/mL NT-Pro-B Natriuret Pep 73 (19.9-100) pg/mL Total Protein 8.0 (6.3-8.2) g/dL Albumin 4.5 (3.5-5.1) g/dL Lipase 70 (23-300) U/L Imaging Data Attestation: I personally reviewed and interpreted this imaging study as follows: My impression: slightly Hyperinflated but otherwise without acute intrathoracic process on my independent interpretation Radiologist's impression: Impressions Chest X-Ray 02/01/24 05:51 Impression: Normal chest. ECG Data EKG #1: Attestation: I personally reviewed and interpreted this ECG as follows: ECG completion date: 02/01/24 ECG completion time: 04:09 Prior ECG tracings: available for review (T-wave inversions in the inferior leads were seen on 01/31/2024 EKG) Interpretation: Normal sinus rhythm at a rate of 882 beats per minute. MT interval 170. QRS 97. QT/QTC 347/386. T-wave inversions in 3 and AVF and some questionable T-wave flattening versus inversion in lead 2. No T-wave inversions across precordial leads. Good R-wave progression across precordial leads. EKG #2: Attestation: I personally reviewed and interpreted this ECG as follows: ECG completion date: 02/01/24 ECG completion time: 07:00 Interpretation: Normal sinus rhythm at a rate of 67 beats per minute. MT interval 162. QRS 94. QT/QTC 3 1/396. Good R-wave progression across the precordial leads. Poor baseline in lead 3 limits full interpretation however T-waves are not inverted but rather flat in contiguous inferior leads 2 and AVF. No other T-wave inversions. Discharge Plan Discharge Clinical Impression: Palpitations Patient Disposition: Home, Self-Care Condition: Stable Instructions: Antibiotic Form, Heart Palpitations (ED) Additional Instructions: You noted that you are looking for a new primary care physician. You can use the name below as a possible referral contact. Still no identifiable etiology for your symptoms on workup today. Your EKGs (electrical activity of your heart) have been normal (x2). Follow up with your bioprocess development engineer through [facility] or, alternatively, the name of a bioprocess development engineer is listed below because you are otherwise low risk and therefore further workup can be done in the outpatient setting. Prescriptions: No Action levothyroxine [Synthroid] 137 mcg tablet 137 mcg PO DAILY clonazepam 0.5 mg tablet 0.5 mg PO BID sertraline 100 mg tablet 100 mg PO BID tramadol 50 mg tablet 50 mg PO TID PRN (Reason: Pain) hydrocodone-acetaminophen 7.5-325 mg tablet 1 tablet PO PRN PRN (Reason: Pain) estradiol 0.1 mg/24 hr patch weekly 1 patch transdermal WEEKLY albuterol sulfate 90 mcg/actuation HFA aerosol inhaler 2 puff INHALATION QID PRN (Reason: shortness of breath or wheezing) Qty: 8.5 0RF Follow-up/Referrals: Abdulkadir Goyal MD [Physician] - (Cardiology) PHYSICIAN,ROLL PICKER [Primary Care Provider] - Donny Mann MD [Physician] - (Family practice) Stand Alone Forms: Work/School Release IP Time of Disposition: 07:41
[2024-02-01 04:30] LABS: Alanine Aminotransferase 28 U/L (6-35); Albumin Level 4.5 g/dL (3.5-5.1); Alkaline Phosphatase 72 U/L (38-126); Anion Gap 5 mmol/L (4-12); Aspartate Amino Transferase 30 U/L (14-36); Bilirubin,Total 0.6 mg/dL (0.2-1.3); Blood Urea Nitrogen 11 mg/dL (7-17); Calcium 9.2 mg/dL (8.4-10.2); Carbon Dioxide 28 mmol/L (22-30); Chloride 104 mmol/L (98-107); Estimated CRCL calculation 130 ml/min; Estimated Glomerular Filt Rate > 60; Glucose 123 mg/dL (65-110); Lipase 70 U/L (23-300); Potassium 4.2 mmol/L (3.4-5.0); Sodium 137 mmol/L (137-145)
[2024-02-01 04:32] LABS: Prothrombin Time 13.6 Seconds (11.1-14.7)
[2024-02-01 04:33] LABS: Partial Thromboplastin Time 29.1 Seconds (22.3-36.8)
[2024-02-01 04:41] LABS: Troponin I < 0.012 ng/mL (0.000-0.034)
[2024-02-01 05:03] LABS: NT Pro B Type Natriuretic Pept 73 pg/mL (19.9-100)
[2024-02-01 05:05] LABS: D Dimer < 0.27 ug/mL (<0.48)
--- NOTE | 2024-02-01 06:56 | ECG_ITS ---
Test Date: 2024-02-01 07:00:36 Measurements Intervals [place] Rate: 67 P: 69 AR: 162 QRS: 69 QRSD: 94 T: 13 QT: 381 QTc: 404 Interpretive Statements SINUS RHYTHM BORDERLINE T WAVE ABNORMALITY- ANT/INF LEADS BASELINE ARTIFACT- I, II, III, AVR, AVL, AVF BORDERLINE ECG COMPARED WITH PRIOR ECG 02-01-24 04:09 NO SIGNIFICANT CHANGE Electronically Signed On 02-01-2024 07:02:12 TREE SCOUT by Jean-Pierre Moon D.O.
[2024-02-01 07:37] LABS: Troponin I < 0.012 ng/mL (0.000-0.034)
--- NOTE | 2024-02-01 08:00 | PC.NURSE ---
Pt ambulated with pulse ox and remained at 98% oxygenation. MD srinivasan.
== END 2024-02-01 08:12 | disposition home or self-care (01) ==
PROVIDERS: Emergency Provider Student in an Organized Health Care Education/Training Program
DX: R00.2 Palpitations (principal); E78.5 Hyperlipidemia, unspecified; F41.9 Anxiety disorder, unspecified; E03.9 Hypothyroidism, unspecified
CPT/HCPCS: 36415; 71045; 80053; 83690; 83880; 84484; 85025; 85380; 85610; 85730; 93005; 99284